=== PATIENT | female | born 1950 | race Two or more races ===

== ENCOUNTER 2022-04-22 11:16 | Outpatient (CLI) | payer OTHER ==
[~2022-04-22 11:16] MED LIST: BONINE25 MG PO; CIPRO500 MG PO
== END 2022-04-22 11:20 | disposition home or self-care (01) ==
LOC: RAD 11:16
PROVIDERS: ATTEND Urology
DX: N20.1 Calculus of ureter (principal)

== ENCOUNTER 2023-11-27 17:51 | Emergency (ER) | payer OTHER ==
[~2023-11-27] VITALS: Ht 154.9 cm; Wt 54.4 kg
[2023-11-27] MEDS ORDERED: DIPHENHYDRAMINE HCL 50 MG/ML VIAL 1ML IV ONE (18:15)
[2023-11-27] MEDS ORDERED: METHYLPREDNISOLONE SOD SUCC 125 MG VIAL IV ONE (18:15)
[2023-11-27] MEDS ORDERED: FAMOTIDINE/PF 20 MG in 0.9 % SODIUM CHLORIDE 8 ML IV PUSH STA (18:15)
[2023-11-27 18:33] LABS: HEMATOCRIT 38.8 % (36.0-45.00); HEMOGLOBIN 13.1 g/dL (12.0-15.00); MEAN CELL VOLUME 88.3 fL (80.00-100.00); MEAN CORPUSCULAR HEMOGLOBIN 29.9 pg (27.00-32.0); MEAN CORPUSCULAR HGB CONC 33.9 g/dl (32.0-36.0); PLATELET COUNT 246 K/uL (150-450); RED BLOOD COUNT 4.39 M/uL (4.00-6.00); RED CELL DISTRIBUTION WIDTH 13.7 % (11.5-14.5)
[2023-11-27 19:02] LABS: ALBUMIN 3.9 gm/dL (3.4-5.0); BILIRUBIN TOTAL 0.77 mg/dL (0.3-1.2); CALCIUM 9.1 mg/dL (8.5-10.1); CREATININE SERUM 1.02 mg/dL (0.55-1.02); GFR 52.83; GLOBULINA 4.1 G/DL (2.4-3.5); POTASSIUM 3.05 mEq/L (3.5-5.1)
[2023-11-27] MEDS ORDERED: ALLEGRA ALLERG180 MG PO (19:26)
== END 2023-11-27 19:33 | disposition home or self-care (01) ==
LOC: ER 17:52
PROVIDERS: General Practice
DX: T78.49XA Other allergy, initial encounter (principal); Z91.041 Radiographic dye allergy status
CPT/HCPCS: 36415; 99282; J1200; J2930; J3490

== ENCOUNTER 2025-08-13 21:22 | Emergency (ER) | payer OTHER ==
[~2025-08-13] VITALS: Ht 154.9 cm; Wt 52.2 kg
[~2025-08-13 21:22] MED LIST changes: +ALLEGRA ALLERG180 MG PO
[2025-08-13] MEDS ORDERED: PROMETHAZINE HCL 25 MG/ML AMPUL IM STA (23:47)
[2025-08-13] MEDS ORDERED: DEXAMETHASONE SODIUM PHOSPHATE 4 MG/ML VIAL IV STA (23:47)
[2025-08-14 02:14] LABS: BASO % 0.3 % (0.1-1.2); EOS # 0.00 (0.04-0.54); EOS % 0.0 % (0.7-7.0); LYMPH # 1.52 (1.18-3.74); LYMPH % 12.9 % (19.3-53.1); MEAN PLATELET VOLUME 10.50 fl (9.4-12.4); MONO # 0.64 (0.24-0.82); MONO % 5.4 % (4.7-12.5); NEUT # 9.55 (1.56-6.13); NEUT % 81.0 % (34.0-71.1); RED CELL DISTRIBUTION WIDTH 12.9 % (11.6-14.4)
[2025-08-14 02:23] LABS: BUN CREA RATIO 12.0 (7.0-25.0); CREATININE SERUM 0.91 mg/dL (0.55-1.02); GFR 59.94; GLUCOSE FASTING 120.0 mg/dL (65-100); OSMOLALITY SERUM 282.0 MOSM/KG (275-295)
[2025-08-14 03:43] LABS: COVID-19 AG NEGATIVE (NEGATIVE)
== END 2025-08-14 04:48 | disposition home or self-care (01) ==
LOC: ER 21:22
PROVIDERS: General Practice
DX: R42 Dizziness and giddiness (principal); R11.2 Nausea with vomiting, unspecified; R55 Syncope and collapse; R50.9 Fever, unspecified; Z20.822 Contact with and (suspected) exposure to COVID-19; Z91.041 Radiographic dye allergy status